=== PATIENT | female | born 1955 | race Caucasian/White ===

== ENCOUNTER 2023-03-01 16:04 | Emergency (ER) | payer OTHER, MEDICARE ==
[~2023-03-01] VITALS: Ht 147.3 cm; Wt 64.4 kg
[2023-03-01 16:14] VITALS: BP 116/75
[2023-03-01] MEDS ORDERED: BENZ-38 PO (16:50)
[2023-03-01] MEDS ORDERED: ERYT1OIN6 EACHEYE (16:50)
== END 2023-03-01 17:08 | disposition home or self-care (01) ==
LOC: ER 16:04
DX: H10.9 Unspecified conjunctivitis (principal); J06.9 Acute upper respiratory infection, unspecified
CPT/HCPCS: 99283